=== PATIENT | male | born 1955 | race Caucasian/White ===

== ENCOUNTER 2020-01-27 10:47 | Emergency (ER) | payer MEDICARE, MEDICAID ==
--- NOTE | 2020-01-27 11:07 | EDM.PDOC ---
ED HPI GENERAL MEDICAL PROBLEM - General Chief Complaint: Upper Extremity Injury/Pain Stated Complaint: AMBULANCE Time Seen by Provider: 01/27/20 11:07 Source of Information: Reports: Patient, EMS, Assisted Records, Old Records , RN, RN Notes Reviewed History Limitations: Reports: Physical Impairment - History of Present Illness INITIAL COMMENTS - FREE TEXT/NARRATIVE: Pt sent from residential with report that pt's left shoulder made a loud crack as they were putting his jacket on. Pt has Hx of easy fractures and osteoporotic bones. Pt seemed to be in pain afterward, so the sent him to the ER. Denies any other injury. No fall. Onset: Today Duration: Constant Location: Reports: Upper Extremity, Left Quality: Reports: Ache Severity: Moderate Improves with: Reports: Immobilization Worsens with: Reports: Movement Associated Symptoms: Reports: No Other Symptoms Left Shoulder Pain Score (Numeric/FACES): 5 - Related Data Allergies Allergy/AdvReac Type Severity Reaction Status Date / Time levofloxacin [From Levaquin] Allergy Cannot Verified 04/14/15 20:39 Remember meperidine Allergy Cannot Verified 04/14/15 20:39 Remember Home Meds: Home Meds Acetaminophen [Pain Reliever] 500 mg PO Q4HR PRN 04/14/15 [History] Baclofen 10 mg PO BID 04/14/15 [History] Bisacodyl [Biscolax] 10 mg RC DAILY PRN 04/14/15 [History] Magnesium Hydroxide [Milk of Magnesia Concentrated] 10 ml PO DAILY PRN 04/14/15 [History] Multivitamin with Minerals [Multivitamins with Minerals] 1 each PO DAILY [History] PHENobarbitaL [Phenobarbital] 2 tab PO DAILY 04/14/15 [History] Phenytoin Sodium Extended 300 mg PO DAILY 04/14/15 [History] Past Medical History Other Gastrointestinal History: chronic ulcers Other Genitourinary History: renal sclerosis Other Musculoskeletal History: hammer toe, paraplegia Other Dermatologic History: contact dermatits, eczema Social & Family History - Living Situation & Occupation Living situation: Reports: Extended Care Facility Occupation: Disabled Review of Systems - Review of Systems Review Of Systems: Comprehensive ROS is negative, except as noted in HPI. ED EXAM, GENERAL - Physical Exam Exam: See Below Exam Limited By: Physical Impairment (Chronically garbled speech) General Appearance: Alert, No Apparent Distress Nose: Normal Inspection Throat/Mouth: No Airway Compromise Head: Atraumatic, Normocephalic Neck: Normal Inspection Respiratory/Chest: No Respiratory Distress, Lungs Clear, Chest Non-Tender, Decreased Breath Sounds Cardiovascular: Normal Peripheral Pulses, Regular Rate, Rhythm Back Exam: Normal Inspection Extremities: Normal Capillary Refill, Arm Pain (left shoulder). No: Joint Swelling, Redness Neurological: Alert Psychiatric: Normal Mood Skin Exam: Warm, Dry, Intact ED TRAUMA EXTREMITY PROCEDURES - Splinting Left Upper Extremity Splint Site: left shoulder Pre-Procedure NV Status: Normal Post-Procedure NV Status: Normal Splint Material: Velcro Splint Design: Other (shoulder immobilizer) Applied & Form Fitted By: Nurse Provider Post-Splint Application NV Check: NV Status Normal, Good Position Complications: No Course - Vital Signs Last Recorded V/S: Last Vital Signs Temp 97.8 F 01/27/20 11:08 Pulse 86 01/27/20 11:08 Resp 16 01/27/20 11:08 BP 133/85 01/27/20 11:08 Pulse Ox 98 01/27/20 11:08 - Orders/Labs/Meds Orders: Active Orders 24 hr Category Date Time Status Immobilizer [RC] ASDIRECTED Care 01/27/20 11:12 Active Meds: Medications Discontinued Medications Generic Name Dose Route Start Last Admin Trade Name Freq PRN Reason Stop Dose Admin Oxycodone/Acetaminophen 1 tab 01/27/20 11:12 01/27/20 11:20 Percocet 325-5 Mg PO 01/27/20 11:13 1 tab ONETIME ONE Administration - Radiology Interpretation Free Text/Narrative:: XR Left shoulder: acute non-displaced left proximal humerus fracture. Departure - Departure Time of Disposition: 11:44 (d/c back to residential to care of Dr. Mitchell.) Disposition: Home, Self-Care 01 Condition: Fair Clinical Impression: Nondisplaced fracture of proximal end of left humerus - Discharge Information *PRESCRIPTION DRUG MONITORING PROGRAM REVIEWED*: Not Applicable *COPY OF PRESCRIPTION DRUG MONITORING REPORT IN PATIENT ROMA: Not Applicable Instructions: Humerus Fracture Treated With Immobilization, [id number] Forms: ED Department Discharge Additional Instructions: Keep left shoulder immobilizer in place. Remove/change per Dr. Mitchell's order. Contact Dr. Mitchell for medications for pain control if needed. Sepsis Event Note - Focused Exam Vital Signs: Vital Signs Temp Pulse Resp BP Pulse Ox 01/27/20 11:08 97.8 F 86 16 133/85 98 Date Exam was Performed: 01/27/20 Time Exam was Performed: 11:38 - My Orders Last 24 Hours: My Active Orders 01/27/20 11:12 Immobilizer [RC] ASDIRECTED - Assessment/Plan Last 24 Hours: My Active Orders 01/27/20 11:12 Immobilizer [RC] ASDIRECTED
[2020-01-27] MEDS ORDERED: Acetaminophen/oxyCODONE 325-5 MG Tab PO ONE (11:12)
[2020-01-27 11:15] VITALS: BP 133/85; PULSE 86
--- NOTE | 2020-01-27 11:20 | CR ---
EXAMINATION: Shoulder Comp Lt SEX: Male AGE: 64 years CLINICAL HISTORY: 64-year-old male left shoulder pain (poss dislocated shoulder-heard a "pop"). INTERPRETATION: Abnormal. 1. Acute mildly impacted but otherwise nondisplaced FRACTURE neck of the proximal left humerus i.e. anatomic alignment. 2. No ipsilateral glenohumeral dislocation or acromial clavicular separation. 3. Underlying ribs left hemithorax unremarkable. Left lung apex clear. 4. No foreign bodies. CONCLUSION: Acute nondisplaced possible left humeral fracture.
== END 2020-01-27 11:50 | disposition home or self-care (01) ==
LOC: DL.ED 10:47
DX: S42.202A Unspecified fracture of upper end of left humerus, initial encounter for closed fracture (principal); Z88.1 Allergy status to other antibiotic agents; Z88.5 Allergy status to narcotic agent; Z79.899 Other long term (current) drug therapy; X58.XXXA Exposure to other specified factors, initial encounter
CPT/HCPCS: 73030; 99283; A9270; 99284